=== PATIENT | male | born 1945 | race Caucasian/White ===

== ENCOUNTER 2016-07-17 06:42 | Emergency (ER) | payer MEDICARE ==
[~2016-07-17] VITALS: Ht 185.4 cm; Wt 86.4 kg
[2016-07-17 06:44] VITALS: BP 112/65; PULSE 61; RESP 16; O2SAT 96
--- NOTE | 2016-07-17 06:53 | ED.REPORT ---
HPI-Extremity Problem Lower Date of Service Jul 17, 2016 ED Provider: González Grady MD A 71 year old male with a history of ADD, hyperthyroidism and depression presents to the ED complaining of lower left leg pain that began approx. 24 hours ago. The intensity of the pain comes in waves. His symptoms have been persistent since onset. He currently takes a thyroid medication, Adderall and Cialis. He denies any recent injury, long trips plane rides or history of blood clots. Patient denies new back pain, numbness or tingling. Nursing Notes Stated Complaint: LOWER LEFT LEG PAIN Chief Complaint: Extremity Trauma Nursing Notes Reviewed: Yes Allergies: Coded Allergies: No Known Allergies (Unverified , 07/17/16) General Time Seen by MD: 06:52 Chief Complaint Leg injury left Hx Obtained From: Patient Arrived By: Walk-in Onset Occurred: Yesterday Symptom Duration: Since onset Location: : Leg left Quality: Painful Severity: Current: Mild Severity: Maximum: Moderate Associated with: Denies: Neuro symptoms pre-arriv, Numb extremities Pertinent Negative: Pt denies other symptoms Relieved by: Flexion (of knee) Recent Healthcare: No recent doctor visit, No recent hospitalization Past Medical History Past Medical History ADD Reports: Depression, Thyroid disease (Hyperthyroidism ) Past Surgical History None reported Smoking History Unknown if Ever Smoker Social History Other Social History: Good social support, Local resident Ambulatory Status Independent Review of Systems Constitutional: Denies: Chills, Fever Musculoskeletal: Reports: Extremity pain (lower left leg pain ), Denies: Extremity swelling Skin: Denies Rash Neurologic: Denies: Change LOC, Numbness, Problem walking Complete sys rev & neg: except as marked. Respiratory: Denies: Shortness of breath Cardiovascular: Denies: Chest pain GI: Denies: Abdominal pain, Nausea, Vomiting Physical Exam Initial Vital Signs Vital Signs (First) Date Time Temp Pulse Resp B/P Pulse Ox O2 Delivery O2 Flow Rate FiO2 07/17/16 06:44 36.6 61 16 112/65 96 Room Air Initial VS: Reviewed Head / Eyes: Atraumatic, Normocephalic, PERRL Neck: Supple, Non-tender, Full range of motion Upper Extremities: Vascular intact, Neuro intact, No swelling, No tenderness Skin: Warm, Dry, No cyanosis Neurologic: Alert, Oriented, Nonfocal Psychiatric: Mood/affect normal, Behavior normal, Normal thought content Lower Extremity / Pelvis / MS: Atraumatic, Neurologic intact, Vascular intact LOWER EXTREMITIES: Good DP and PT pulses No ecchymosis No bruising No redness, swelling, or warmth No palpable chords Tenderness about left lower left distal ant lateral LE without any associated swelling Pain received by flexion of knee Ankle / Foot: Atraumatic, Neurologic intact, Vascular intact General/Constitutional: Awake, Alert Respiratory / Chest: Atraumatic, Breath sounds NL, Breath sounds = bilat Cardiovascular: Heart rate NL, Regular rhythm, Heart sounds NL, No gallop, No murmurs, No rubs Abdomen: Atraumatic, Soft, Non-tender, No distention Re-Eval/Medical Decision Med Decision/Clinical Course A 71 year old male with a history of ADD, hyperthyroidism and depression presents to the ED complaining of lower left leg pain that began approx. 24 hours ago. The intensity of the pain comes in waves. His symptoms have been persistent since onset. The pain is worse with movement of his leg. It is relieved with ice packs and hot packs. Examination reveals no swelling, palpable cords or findings suggestive of DVT. The nature of his pain is unconvincing for DVT. He has no major risk factors for DVT. He is neurovascular intact. He has had no trauma to his leg and is able to weight- bear with ease. There are no findings suggestive of fracture. I do not feel that ultrasound or radiography will be diagnostically useful. The patient was treated with oral Tylenol and reported that his pain completely resolved. The pain is reproducible with palpation about the lateral leg disease was consistent with musculoskeletal etiology. He will apply ice pack/hot packs and return should he develop any worsening pain, swelling, signs of DVT or neurovascular symptoms. Follow up and return precautions were reviewed in detail and he was discharged in good condition. Re-Evaluation/Progress : Time of Eval: 07:59 Patient Status: Condition improved Re-Evaluation/Progress Note: Patient is rechecked. He is informed of his diagnosis. All of the patient's questions are addressed. He understands and agrees with the treatment plan. Counseled Regarding: Diagnosis, Need for follow-up, When/why to return to ED Discharge & Departure Impression: Primary Impression: Leg sprain Disposition: Home Discharge Condition All VS Reviewed: Yes Condition: Stable Patient Instructions: Muscle Strain (ED) Additional Instructions: Thank you for seeking care at emergency room. It is difficult for us to make definitive diagnoses in the ED but we believe that you are experiencing . Our primary goal today in the ED was to evaluate you for any life-threatening conditions. Your evaluation was reassuring. Take ibuprofen every 6 hours as needed for pain. You should follow-up with your primary doctor in the next week. You should return to the ED immediately if you develop any worsening pain, swelling, numbness, tingling, weakness or any other concerning signs or symptoms. Thank you for letting us partake in your care today. Referrals: [facility] Scribe Attestation Portions of this note were transcribed by Sriram Art. I, Dr. Grady personally performed the history, physical exam and medical decision-making; I reviewed and confirmed the accuracy of the information in the transcribed note. Signed by: Sriram Art, 07/17/16, 0802. González Grady MD Jul 17, 2016 06:53 SRIRAM ART Jul 17, 2016 08:00
== END 2016-07-17 08:30 | disposition home or self-care (01) ==
LOC: SED 06:42
DX: S86.812A Strain of other muscle(s) and tendon(s) at lower leg level, left leg, initial encounter (principal); X58.XXXA Exposure to other specified factors, initial encounter; Y93.9 Activity, unspecified; Y92.9 Unspecified place or not applicable; Y99.9 Unspecified external cause status